=== PATIENT | male | born 1995 | race Two or more races ===

== ENCOUNTER 2020-12-31 09:10 | Emergency (ER) | payer MEDICAID, OTHER ==
[~2020-12-31] VITALS: Ht 190.5 cm; Wt 102.1 kg
[2020-12-31 11:26] VITALS: BP 117/81
[2020-12-31 11:47] LABS: Basophils # (auto) 0 10 ^3/uL (0-0.2); Basophils % (auto) 0.3 % (0.0-2.0); Eosinophils # (auto) 0.1 10 ^3/uL (0-0.8); Eosinophils % (auto) 1.4 % (0.0-7.0); Hematocrit 45.3 % (41.0-53.0); Lymphocytes # (auto) 1.2 10 ^3/uL (0.4-5.4); Lymphocytes % (auto) 19.9 % (10.0-50.0); Mean Corpuscular Hemoglobin 32.9 pg (28.0-32.0); Mean Corpuscular Hgb Conc. 35.3 g/dL (32.0-36.0); Mean Corpuscular Volume 93.3 fL (80.0-100.0); Monocytes # (auto) 0.9 10 ^3/uL (0-1.3); Monocytes % (auto) 14.8 % (0.0-12.0); Neutrophils # (auto) 3.9 10 ^3/uL (1.6-8.6); Neutrophils % (auto) 63.6 % (37.0-80.0); Nucleated Red Blood Cells % 0.1 %; Red Blood Cells 4.85 10^6/uL (4.5-5.90); Red Cell Distribution Width 12.7 % (11.8-14.3); White Blood Cell 6.2 10^3/uL (4.4-10.8)
[2020-12-31] MEDS ORDERED: CLINDAMYCIN 900MG IV 50 ML IV ONE (12:00)
[2020-12-31] MEDS ORDERED: KETOROLAC TROMETH 30 MG/ML 1ML VIAL IV ONE (12:00)
[2020-12-31 12:02] LABS: Albumin 3.4 g/dL (3.4-5.0); Calcium 8.9 mg/dL (8.5-10.1); Potassium 4.1 mmol/L (3.5-5.1)
[2020-12-31 12:06] LABS: Bilirubin, Total 0.5 mg/dL (0.2-1.0); Total Protein 7.7 g/dL (6.4-8.2)
== END 2020-12-31 13:19 | disposition home or self-care (01) ==
LOC: ER 09:10
DX: S02.5XXA Fracture of tooth (traumatic), initial encounter for closed fracture (principal); K02.9 Dental caries, unspecified; R51.9 Headache, unspecified; F17.210 Nicotine dependence, cigarettes, uncomplicated; X58.XXXA Exposure to other specified factors, initial encounter; Y93.89 Activity, other specified; Y92.89 Other specified places as the place of occurrence of the external cause; Y99.8 Other external cause status
CPT/HCPCS: 36415; 70450; 70487; 80053; 85025; 96365; 96375; 99284; J1885; J3490

== ENCOUNTER 2023-09-05 12:32 | Emergency (ER) | payer MEDICAID ==
[~2023-09-05] VITALS: Ht 190.5 cm; Wt 115.0 kg
[~2023-09-05 12:32] MED LIST: ZOFR4T PO
[2023-09-05 12:48] VITALS: BP 158/81; PULSE 107; RESP 18; O2SAT 97
[2023-09-05 13:58] LABS: Basophils # (auto) 0 10 ^3/uL (0-0.2); Basophils % (auto) 0.2 % (0.0-2.0); Eosinophils # (auto) 0 10 ^3/uL (0-0.8); Hematocrit 48.4 % (41.0-53.0); Hemoglobin 16.9 g/dL (13.5-17.5); Lymphocytes # (auto) 0.7 10 ^3/uL (0.4-5.4); Lymphocytes % (auto) 5.8 % (10.0-50.0); Mean Corpuscular Hemoglobin 32.6 pg (28.0-32.0); Mean Corpuscular Volume 93.2 fL (80.0-100.0); Monocytes % (auto) 7.6 % (0.0-12.0); Neutrophils # (auto) 10.9 10 ^3/uL (1.6-8.6); Neutrophils % (auto) 86.4 % (37.0-80.0); Nucleated Red Blood Cells % 0.1 %; Red Blood Cells 5.19 10^6/uL (4.5-5.90); Red Cell Distribution Width 13.9 % (11.8-14.3); White Blood Cell 12.6 10^3/uL (4.4-10.8)
[2023-09-05] MEDS: SODIUM CHLORIDE 0.9% 1,000 ML IVB ONE (14:14)
[2023-09-05] MEDS: PANTOPRAZOLE 40 MG/10 ML VIAL INJ IV ONE (14:26)
[2023-09-05] MEDS: PROCHLORPERAZINE EDISYLATE 5 MG/ML 2ML VIAL IV ONE (14:26)
[2023-09-05 15:34] LABS: Alanine Aminotransferase 123 U/L (7-40); Alkaline Phosphatase 82 U/L (46-116); Anion Gap 19 (5-15); Aspartate Aminotransferase 159 U/L (13-40); BUN/Creatinine Ratio 11.8 (10.0-20.0); Blood Urea Nitrogen 10 mg/dL (9-23); Calcium 11.1 mg/dL (8.7-10.4); Carbon Dioxide 18 mmol/L (20-30); Chloride 97 mmol/L (98-107); Glucose 105 mg/dL (74-106); Lipase 35 U/L (12-53); Potassium 3.4 mmol/L (3.5-5.1); Sodium 134 mmol/L (136-145)
[2023-09-05 15:35] LABS: Bilirubin, Total 1.6 mg/dL (0.2-1.0); Total Protein 7.9 g/dL (5.7-8.2)
[2023-09-05 15:54] LABS: Urine Bacteria None Seen /hpf (None Seen)
[2023-09-05 16:28] LABS: Urine Blood Negative /uL (Negative); Urine Clarity Clear (Clear); Urine Mucus MODERATE (None Seen); Urine Protein, UAD 3+ (Negative); Urine Specific Gravity 1.045 (1.001-1.035); Urine Urobilinogen 6 mg/dL (Negative); Urine WBC 1 /hpf (0 - 3)
[2023-09-05 16:30] LABS: Urine Color Yellow (Yellow)
== END 2023-09-05 16:13 | disposition left against medical advice (07) ==
LOC: ER 12:32
DX: R10.31 Right lower quadrant pain (principal); R11.2 Nausea with vomiting, unspecified; R50.9 Fever, unspecified; F17.290 Nicotine dependence, other tobacco product, uncomplicated; F12.10 Cannabis abuse, uncomplicated
CPT/HCPCS: 36415; 74176; 80053; 81001; 83690; 85025; 96361; 96374; 96375; 99285; J0780; J7030